=== PATIENT | male | born 1955 | race Caucasian/White ===

== ENCOUNTER → 2018-12-15 | Outpatient (CLI) | payer OTHER ==
[~2018-12-15] MED LIST: ACETAMINOPHEN-1 EAC1 PO; ALEVE220 MG PO; ASPIR 8181 MG PO; CELEXA10 MG PO; IBUPROFEN 200200 M1 PO; MOBIC15 MG PO; SLEEP AID OTC PO; VENTOLIN HFA 1818 GM INH
== END ==
LOC: M.MRI 17:06
DX: S83.231A Complex tear of medial meniscus, current injury, right knee, initial encounter (principal); X58.XXXA Exposure to other specified factors, initial encounter; Y93.89 Activity, other specified; Y92.89 Other specified places as the place of occurrence of the external cause; Y99.8 Other external cause status